=== PATIENT | female | born 1950 | race African-American/Black ===

== ENCOUNTER 2016-08-07 19:03 | Inpatient (IN) | payer OTHER ==
--- NOTE | ~2016-08-07 | HP ---
History And Physical [place] [id number] [facility] [place]. [address] NAME: ITZEL THOMPSON : 50 STATUS : ADM IN [facility]#: [id number] AGE: 66 ADM/REG DATE : 08/07/16 MR#: [id number] REPORT SERV DATE: 08/08/16 DICTATED BY: SAWYER VOGT DATE: 08/08/16 REPORT STATUS : Draft TRANSCRIBED BY: MODL DATE: 08/08/16 DATE OF ADMISSION: 08/07/2016 HISTORY OF PRESENT ILLNESS: She is a 66-year-old female, who apparently was found living in her car brought in because of unresponsiveness. She was found by her family. The patient was found to be having seizures. She was started on Keppra and Ativan for seizure activity. Temperature is noted to be 101.4. Blood pressure was 137/57. PAST MEDICAL HISTORY: Currently not obtainable. REVIEW OF SYSTEMS: Not obtainable. MEDICATIONS: Not obtainable. ALLERGIES: NOT OBTAINABLE. PHYSICAL EXAMINATION: VITAL SIGNS: Blood pressure is approximately 104/37, pulse is 90, temperature is as noted. She has gotten 3.5 L of fluid. She has gotten rectal Tylenol. Currently, on Levophed of 5. HEAD: Head is normocephalic. Pupils are equal and reactive. Doll's eyes are present. NECK: Supple. No JVD. CHEST: Occasional rhonchi, otherwise clear. CARDIAC: S1 and S2. No murmurs, rubs, or gallops. ABDOMEN: Scaphoid and nontender. No masses or organomegaly. EXTREMITIES: No clubbing, cyanosis, or edema. Pulses are palpable. NEUROLOGIC: Responsive to painful stimuli. Her pupils do respond to light. She does move occasionally spontaneously. Neck is not stiff. LABORATORY AND DIAGNOSTIC DATA: Lactate is 1.4. Influenza A and B screens were negative. Strep screen is negative. Drug screen; sodium 145, potassium 3.3, chloride 111, CO2 of 23, BUN 15, creatinine 1.26, glucose 105, calcium 7.0, magnesium 1.3, troponin 0.92. Tylenol level 11.2. Salicylate less than 1.7. Tetracaine 3.2. Tegretol 0.5. Alcohol less than 10. Urine drug screen is negative. CBC shows an H and H of 9.3 and 27.5, white count 1300, platelet count 138,000, 76 polys, 9 bands, 2 metamyelocytes. PTT 28.2, ProTime 15.9, INR 1.3. BNP 33. CT of the brain negative. Urinalysis; 76 polys, 8 white blood cells, otherwise negative. Nitrate negative. History And Physical [address] [address] NAME: ITZEL THOMPSON : 50 STATUS : ADM IN [facility]#: [id number] AGE: 66 ADM/REG DATE : 08/07/16 MR#: [id number] REPORT SERV DATE: 08/08/16 DICTATED BY: SAWYER VOGT DATE: 08/08/16 REPORT STATUS : Draft TRANSCRIBED BY: LORIN DATE: 08/08/16 Blood gas showed pH of 7.34, pCO2 of 41, pO2 of 82, base excess -3.8 on 50%. X-ray shows cardiomegaly, possible infiltrate right lower lobe. IMPRESSION: 1. Fever with seizures. 2. Altered mental status. 3. Heat exposure, dehydration, possible pneumonia. PLAN: Continue Levophed and continue Rocephin and Levaquin. We will consider spinal tap if condition improving. Her antibiotic should cover her for any possibly meningitis as well as pneumonia. Family was not available. RP/LORIN Sawyer Vogt M.D. / [id number] CC: Sawyer Vogt M.D.
--- NOTE | ~2016-08-07 | IDS ---
Interim Discharge Summary [facility] [address] [place]. [address] NAME: ITZEL THOMPSON : 50 STATUS : ADM IN [facility]#: [id number] AGE: 66 ADM/REG DATE : 08/07/16 MR#: [id number] REPORT SERV DATE: 08/10/16 DICTATED BY: JENNIFER MERA IV DATE: 08/10/16 REPORT STATUS : Draft TRANSCRIBED BY: LORIN DATE: 08/10/16 ADMISSION DATE: 08/07/2016 DISCHARGE DATE: DATE OF TRANSFER: To the floor is 08/10/2016. ADMITTING DIAGNOSES: 1. Sepsis with shock requiring vasopressor agents, off since the . 2. Reported seizure activity on Depakote with a negative EEG and LP as well as MRI. 3. Encephalopathy, improving. 4. Bacteremia with ID consult pending. No evidence for vegetations on transcutaneous echocardiogram. 5. Presumed pneumonia felt to be aspiration with Strep pyogenes in the sputum on antibiotics. 6. Schizophrenia with catatonia. 7. Thrombocytopenia with HIT panel pending on pneumatic compression stockings for deep vein thrombosis prophylaxis. 8. Electrolyte abnormalities, being corrected. CONSULTANTS: Neurology and Psychiatry, who continue to follow the patient. Infectious Disease consult is currently pending. PROCEDURES: The patient had a head CT scan on the failing to demonstrate any pathology. The patient had a lumbar puncture performed, which demonstrated no elevation in the white blood cell count with cultures negative to date with some serologic studies pending. The patient had an MRI on the demonstrating some minor deep white matter microvascular changes. She had an echocardiogram obtained today demonstrating left ventricular function at 50%-55% with some elevated right ventricular systolic pressure 47 mmHg with mild mitral regurgitation, with no evidence for vegetations and had a PICC line placed on 08/08. CURRENT MEDICATIONS: The patient is on Ativan 0.5 mg q.8 hours, Bactroban to her nose twice a day, Depakote 500 mg twice a day, thiamine 200 mg IV daily, vancomycin dose per pharmacy, azithromycin 500 mg to complete five days, Protonix 40 mg daily, Proventil q.4 hours while awake and q.4 hours as needed, Zosyn 3.375 g q.6 hours. HOSPITAL COURSE: The patient has recently been discharged from [facility] for her psychiatric disorder. The patient was reportedly living in a car in front of a family member's house. When they went to check on the individual, they were nonresponsive for which they were brought to the emergency room. There she reportedly had a temperature of a 104 with seizure activity. She underwent lumbar puncture, which failed to demonstrate evidence for meningitis and subsequent imaging studies, which demonstrated only the minimal microvascular disease on MRI. Neurology and Psychiatry were both consulted. The patient was empirically placed on antibiotic coverage with the fever and elevated procalcitonin level. Subsequent cultures have demonstrated a coag-negative staph on both blood cultures with ID consult pending. She grew moderate Strep pyogenes from sputum and 100,000 E coli from her urine. Her white count has appropriately decreased as has a procalcitonin level. Interim Discharge Summary [address] [address] NAME: ITZEL THOMPSON : 50 STATUS : ADM IN [facility]#: [id number] AGE: 66 ADM/REG DATE : 08/07/16 MR#: [id number] REPORT SERV DATE: 08/10/16 DICTATED BY: JENNIFER MERA IV DATE: 08/10/16 REPORT STATUS : Draft TRANSCRIBED BY: LORIN DATE: 08/10/16 She developed worsening of her thrombocytopenia for which heparin products were discontinued and the HIT panel was pending. Though this would be very early, it is unclear whether she received DVT prophylaxis while in the recent the medical center facilities. The patient was initially unresponsive for which a Dobbhoff tube was placed, however, that has improved. The oral intake is still somewhat marginal. She had multiple electrolyte abnormalities, which have improved. She no longer requires supplemental oxygen. It was felt that she had some mild acute kidney injury that has resolved with IV hydration as well. It was felt that she was stable for transfer to the floor. She has an order written by Psychiatry to coordinate transfer back to [facility] when she is medically stable. We will ask Hospitalist Service to assume primary care. DENISE/LORIN Jennifer Mera IV, M.D. / [id number] CC: Sawyer Whiteside M.D.
--- NOTE | ~2016-08-07 | CN ---
Consultation Report [facility] [address] [place]. [address] NAME: ITZEL THOMPSON : 50 STATUS : ADM IN PAT#: [id number] AGE: 66 ADM/REG DATE : 08/07/16 MR#: [id number] REPORT SERV DATE: 08/10/16 DICTATED BY: ARNOL MERINO DATE: 08/10/16 REPORT STATUS : Draft TRANSCRIBED BY: MODL DATE: 08/10/16 INFECTIOUS DISEASE CONSULTATION DATE OF CONSULTATION: 08/10/2016 REASON FOR CONSULTATION: Positive blood cultures. HISTORY OF PRESENT ILLNESS: This is a 66-year-old female with a past medical history notable for significant psychiatric illness including schizophrenia with catatonic features. She was hospitalized at [facility] from approximately 07/23/2016 through 08/02/2016. Her discharge medications were Haldol and p.r.n. Benadryl. She unfortunately is homeless and was staying in her car and was brought to the emergency department at [facility] on 08/07/2016 after being found in a car to be unresponsive and then noted to have seizure episodes. She apparently had an initial fever in the emergency department of 104.7. She was also tachycardic and relatively hypotensive and had an initial procalcitonin of 12.70. She underwent extensive evaluation including negative CT scan of the brain and chest x-ray and lumbar puncture. She was started on broad-spectrum empiric antibiotics with vancomycin, Zosyn, and azithromycin. She did develop some changes in her chest x-ray and there was some concern that she could have aspirated. The patient was evaluated by Neurology. She has had no further seizures. She had a fever up to 100.7 yesterday and early this morning. Her procalcitonin is down to 3.54. Her admission blood cultures returned with coagulase- negative staph. These are recorded as being drawn at different times, although we do not know for sure if these are from two separate sticks. According to the micro lab, there appeared to be two different strains of coagulase-negative staph. Her workup also has included abnormal urinalysis as noted below with positive urine culture along with a throat culture growing group a strep. The patient's mental status has improved. At present, she is fairly alert and in no acute distress. She denies any significant pain. She denies any UTI symptoms, although has a Vazquez catheter right now. She denies back pain, although does have some bilateral hip discomfort. PAST MEDICAL HISTORY: Otherwise unremarkable, although difficult to obtain. So, this is an incomplete history. ALLERGIES: SHE IS INTOLERANT APPARENTLY TO HEPARIN. PRESENT MEDICATIONS: In addition to the antibiotics include Protonix, valproic acid, and thiamine. SOCIAL HISTORY: As outlined above. Apparently, she refused to live in an apartment which [facility] had arranged for her. FAMILY HISTORY: Unremarkable. REVIEW OF SYSTEMS: Consultation Report [address] [place]. [address] NAME: ITZEL THOMPSON : 50 STATUS : ADM IN [facility]#: [id number] AGE: 66 ADM/REG DATE : 08/07/16 MR#: [id number] REPORT SERV DATE: 08/10/16 DICTATED BY: ARNOL MERINO DATE: 08/10/16 REPORT STATUS : Draft TRANSCRIBED BY: LORIN DATE: 08/10/16 As outlined above, otherwise negative. PHYSICAL EXAMINATION: VITAL SIGNS: She weighs 48 kg. Maximum temperature in the last 24 hours 100.7, blood pressure 119/63, pulse 92, and respiratory rate 14. GENERAL: She is in no acute distress. HEENT: Oral cavity shows no thrush. Pharynx was difficult to visualize. Conjunctivae showed no petechiae. NECK: Supple. No adenopathy. LUNGS: Clear to auscultation. CARDIAC: Regular rate and rhythm. Normal S1, S2 without murmur, gallop, or rub. ABDOMEN: Soft, nontender, and nondistended. EXTREMITIES: Showed no stigmata of endocarditis. IV site is without phlebitis. I do not see any signs of soft tissue or skin infection. LABORATORY STUDIES: Admission white blood cell count 11.3, 9% bands, yesterday 7.1; hemoglobin 8.9; MCV 92; RDW 16.1; platelets are 78,000, they were 138,000 on admission. Procalcitonin today 3.54, creatinine 0.95, albumin 2.4, ALT 54, AST 33. On 08/08/2016, her ALT was 103 and AST 138. CPK was 528, CPK is now 305. HIV and hepatitis panel are negative. RPR is pending. MICROBIOLOGY STUDIES: Blood cultures as mentioned. Urine culture grew 10,000 colonies of E coli, which is resistant to ceftriaxone, sensitive to Zosyn. Urinalysis showed large leukocyte esterase, large blood, 76 red blood cells, 8 white blood cells. Rapid strep screen on throat swab was negative. Throat culture grew moderate group a strep. Urine legionella and pneumococcal antigens negative. Influenza screen negative. Repeat blood cultures from yesterday are negative to date. IMPRESSION: Possible sepsis on admission given the high fever in the emergency room, tachycardia, tachypnea, and relative hypotension. There was some concern here for the possibility of neuroleptic malignant syndrome, but with the significantly elevated procalcitonin. I think we have to be concerned that she did have bacterial sepsis. The source is not clear. She has these positive blood cultures for coagulase-negative Staph, but it looks like two different strains, and overall I suspect these are contaminants. I do not see signs of a true coagulase-negative Staph infection. I should note that her echocardiogram did not show evidence of endocarditis, although was a somewhat limited study. She may have aspirated with her seizure and certainly that is likely a source of her sepsis picture. Her serial chest x-rays are reviewed and do show some new findings although not convincing for pneumonia. Finally, she has this positive urine culture and then mildly abnormal urinalysis and an E coli UTI may be contributing to the sepsis picture. PLAN: 1. For now, we will continue her Zosyn to cover the possibility of aspiration and to cover the UTI. 2. Discontinue vancomycin and azithromycin. Consultation Report [address] [place]. [address] NAME: ITZEL THOMPSON : 50 STATUS : ADM IN [facility]#: [id number] AGE: 66 ADM/REG DATE : 08/07/16 MR#: [id number] REPORT SERV DATE: 08/10/16 DICTATED BY: ARNOL MERINO DATE: 08/10/16 REPORT STATUS : Draft TRANSCRIBED BY: LORIN DATE: 08/10/16 3. If her repeat blood cultures remain negative and she defervesces, we can transition to oral antibiotic therapy over the next 24 to 48 hours. JUAN LUIS/LORIN Arnol Merino M.D. / [id number] CC: Sawyer Whiteside M.D. NO PCP
--- NOTE | ~2016-08-07 | EEG ---
Electroencephalogram [facility] [address] [place]. [address] NAME: ITZEL THOMPSON : 50 STATUS : ADM IN PAT#: [id number] AGE: 66 ADM/REG DATE : 08/07/16 MR#: [id number] REPORT SERV DATE: 08/08/16 DICTATED BY: DATE: REPORT STATUS : Draft TRANSCRIBED BY: MODL DATE: 08/08/16 CLINICAL INDICATIONS: Seizure. DESCRIPTION: This EEG was performed using 10/20 electrode placement system. During the EEG study, symmetric background activity was noted with predominant occipital rhythm of roughly 9-10 hertz. Photic stimulation was performed with trace driving response. Hyperventilation was not performed secondary to patient's mental status. During the EEG study, the patient achieved drowsy as well as stage I and II sleep. Nail bed pressure was applied during the EEG study with brief arousal episode as well as muscle contamination, otherwise the patient remains in stage I and II sleep throughout most of the EEG study. No focal abnormalities, seizure activity, or seizure discharge was otherwise noted. INTERPRETATION: This EEG study obtained during awake and drowsy state as well as stage I and II sleep may be considered within normal limits. No focal abnormalities, seizure activity, or seizure discharge was otherwise noted. Normal EEG does not preclude seizure disorder. Clinical correlation is otherwise recommended. [facility]/LORIN Twin Paulino MD / [id number] CC: Sawyer Whiteside M.D.
--- NOTE | ~2016-08-07 | CN ---
Consultation Report [facility] [address] [place]. [address] NAME: ITZEL THOMPSON : 50 STATUS : ADM IN PAT#: [id number] AGE: 66 ADM/REG DATE : 08/07/16 MR#: [id number] REPORT SERV DATE: 08/08/16 DICTATED BY: DATE: REPORT STATUS : Draft TRANSCRIBED BY: MODL DATE: 08/08/16 NEUROLOGY CONSULTATION DATE OF CONSULTATION: 08/08/2016 REASON FOR CONSULTATION: Seizure. HISTORY OF PRESENT ILLNESS: This is a 66-year-old female, who apparently was living in her car outside of friend's house was noted to be unresponsive and brought to the emergency room and noted to have seizure episodes. The patient was started on Ativan as well as the Keppra with the control of seizure. The patient in addition was also noted to have high fevers at the Emergency Department, with the patient noted to have fever of 104.7 degree. As a result, the spinal tap was performed without significant abnormalities. The patient reportedly has history of psychiatric disorder, but unable to confirm history without any family members or friends. The patient is nonverbal this morning. No clinical seizure was otherwise observed since the hospitalization. The Patient continued to be on Keppra IV. PAST MEDICAL HISTORY: Unobtainable. FAMILY HISTORY: Unobtainable. SOCIAL HISTORY: Unobtainable. MEDICATIONS: Unobtainable. ALLERGIES: IT IS UNCLEAR WHETHER OR NOT THE PATIENT HAS ANY ALLERGIES TO ANY MEDICATIONS. PHYSICAL EXAMINATION: VITAL SIGNS: Since the hospitalization, the patient was noted to have vital signs with T- max of 96.2, heart rate of 70 to 78, respirations of 20 to 26, and blood pressure of 195 to 113/52 to 73. GENERAL: The patient is well-developed, well-nourished, in no acute distress. CARDIOVASCULAR: Regular rate and rhythm. No carotid bruits were otherwise auscultated. PULMONARY: Mild decreased breath sound in bilateral lung watt. The patient does have a cough productive of clear sputum at time of evaluation. NEUROLOGIC: The patient is alert, but nonverbal at the time of evaluation. She will follow some simple commands at the time of evaluation. Cranial nerves 2 through 12, pupils equal, round, and reactive to light. The patient does demonstrates intact extraocular eye movement on command at the time of evaluation, with intact blink to threat response, was noted to have sensation to touch in bilateral face. With the patient noted to have mild facial asymmetry, with decreased nasolabial fold on the left. Otherwise midline tongue. At time of evaluation, appeared to have mild decreased hearing in bilateral ears. The patient does demonstrate movement of bilateral upper extremity and bilateral lower extremity against gravity. Also bradykinesia was noted. No tremor was appreciated at time of evaluation. Consultation Report [place] [id number] [facility] [place]. [address] NAME: ITZEL THOMPSON : 50 STATUS : ADM IN PAT#: [id number] AGE: 66 ADM/REG DATE : 08/07/16 MR#: [id number] REPORT SERV DATE: 08/08/16 DICTATED BY: DATE: REPORT STATUS : Draft TRANSCRIBED BY: MODL DATE: 08/08/16 Deep tendon reflex was 2+ throughout. Downgoing toe on bilateral plantar reflexes. Gait and cerebellar examination was not evaluated, secondary to the patient non-cooperative. LABORATORY DATA: At the time of evaluation, the patient's laboratory studies demonstrated white blood cell count of 6.3, hemoglobin of 9.9, hematocrit of 29.9, and platelet count of 98. Chemistry panel; sodium of 147, potassium 3.5, chloride 114, bicarb 22, BUN of 18, creatinine 1.07. Glucose of 116, calcium of 7.3, magnesium 1.9. Serum TSH of 0.343, free T4 of 1.10, serum cortisol this morning was 12.8. With the patient noted to have a spinal tap. CSF white blood cell count of 1 and 68 red blood cell. Glucose of 76. Total protein of 37.1. Urine drug screen is otherwise negative. With the patient's urinalysis demonstrated large leukocyte esterase and negative nitrite. CT scan of the brain otherwise demonstrated no acute process. IMPRESSION: Seizure, it is unclear if the patient has any history of seizure disorders in the past. The patient also remains afebrile since hospital admission, but was noted to have high body temperature in the Emergency Department. Spinal tap performed in the Emergency Department demonstrated no clear infectious etiology or pattern. Concern for possible acute stroke versus a new onset seizures. We will check MRI of the brain without contrast. We will obtain EEG study. Meanwhile we will continue Keppra 500 mg IV b.i.d. for now. May consider Depakote given the patient's suspected history of psychiatric disorder. RECOMMENDATION: 1. MRI of the brain without contrast. 2. EEG. 3. Continue Keppra for now. 4. May consider Depakote. [facility]/MODL Twin Paulino MD / [id number] CC: Sawyer Whiteside M.D.
--- NOTE | ~2016-08-07 | CN ---
Consultation Report [facility] [address] [place]. [address] NAME: ITZEL THOMPSON : 50 STATUS : ADM IN PAT#: [id number] AGE: 66 ADM/REG DATE : 08/07/16 MR#: [id number] REPORT SERV DATE: 08/09/16 DICTATED BY: RICKY FELIX DATE: 08/09/16 REPORT STATUS : Draft TRANSCRIBED BY: MODL DATE: 08/09/16 PSYCHIATRIC CONSULTATION DATE OF CONSULTATION: 08/09/2016 I reviewed the patient's medical record. I also reviewed records which we received from [facility]. I discussed patient's status with the neurologist, Dr. Caballero. HISTORY OF PRESENT ILLNESS: The patient was found unresponsive in her car. Subsequently, she had a questionable seizure in our emergency department and she also ran a temperature of over 104 degrees Fahrenheit while she was there. I was consulted to address her psychiatric status. PAST PSYCHIATRIC HISTORY: She has had 5 admissions to [facility] with psychotic symptoms. She was last discharged from there on 08/03/2016, with a diagnosis of chronic schizophrenia and catatonia. While she was there, she was receiving Haldol Decanoate 100 mg IM monthly. Her next dose was due on 08/21/2016. She was to receive follow up outpatient psychiatric care at [facility]. SOCIAL HISTORY: Her sister who was visiting reported that the patient has been homeless for some time. She refused to live in the apartment which [facility] had arranged for her at the time of her discharge. She was living in her car. FAMILY HISTORY: No psychiatric illness. MENTAL STATUS: She was lying on her right side with flexed hips and knees. She kept her eyes closed. She did not respond to a greeting or to my questions. Her nurse reported that she occasionally uttered "no" or "get out" when they attempted to intervene. DIAGNOSIS: Schizophrenia with catatonic features. RECOMMENDATIONS: We will give her Ativan 1 mg IV slowly and observe the response. If she seems to be responding to Ativan or if it is not causing further sedation, I may put her on an Ativan schedule. When she is finally cleared by Neurology and General Medicine, she probably will need to return to [facility]. I discussed my recommendations with Dr. Mera. I will follow. DK/MODL Ricky Felix M.D. Consultation Report [address] [place]. [address] NAME: ITZEL THOMPSON : 50 STATUS : ADM IN PAT#: [id number] AGE: 66 ADM/REG DATE : 08/07/16 MR#: [id number] REPORT SERV DATE: 08/09/16 DICTATED BY: RICKY FELIX DATE: 08/09/16 REPORT STATUS : Draft TRANSCRIBED BY: MODL DATE: 08/09/16 / [id number] CC: Sawyer Whiteside M.D.
--- NOTE | ~2016-08-07 | DS ---
Discharge Summary [place] [id number] [facility] [place]. [address] NAME: ITZEL THOMPSON : 50 STATUS : DIS IN PAT#: [id number] AGE: 66 ADM/REG DATE : 08/07/16 MR#: [id number] REPORT SERV DATE: 08/17/16 DICTATED BY: JER RIOS DATE: 08/16/16 REPORT STATUS : Draft TRANSCRIBED BY: MODDebbie DATE: 08/16/16 ADMISSION DATE: 08/07/2016 DISCHARGE DATE: 08/17/2016 REASON FOR ADMISSION: This is a 66-year-old female, who was found living in her car and brought in because of unresponsiveness. She was found by family. The patient was found to be having seizures and started on Keppra and Ativan for seizure activity, and temperature was 101.4 on admission. DISCHARGE DIAGNOSES: 1. Status post septic shock secondary to E coli urinary tract infection. 2. Group A strep throat. 3. Contaminant-positive blood culture. 4. Schizophrenia with catatonia. 5. Reported seizures, on p.o. Depakote. 6. Iron deficiency anemia. HOSPITAL COURSE: Please see H and P from Dr. Sawyer Whiteside on 08/08/2016 and interim discharge summary from Dr. José Miguel Mera on 08/10/2016 for full details on admission and hospital stay. 1. Status post septic shock secondary to UTI. The patient on admission had been recently discharged from [facility] for psychiatric disorder and had been living in a car, found unresponsive, and reportedly was having high fevers and seizure activity. She underwent a lumbar puncture, which was negative for evidence of meningitis, and subsequent MRI would demonstrate only microvascular disease. Neurology and Psychiatry were both consulted. The patient was then empirically placed on antibiotic coverage for the fever and elevated procalcitonin. Subsequent cultures demonstrated coag- negative staph on both cultures. ID did see the patient and deemed the positive blood cultures to be contaminant. She grew moderate Strep pyogenes from sputum at 100,000 E coli in urine. Her white count and procalcitonin trended down appropriately. The patient initially was unresponsive and had Dobbhoff tube placed, but she is now fully cognitively functional minus her psychiatric disorders, oral intake is good, and no longer required supplemental oxygen. She was transitioned to oral amoxicillin for the group A strep and will complete on 08/17. 2. Schizophrenia with catatonia. Dr. Cabral saw the patient here at hospital and felt that she needed further inpatient psychiatric care. He has had her on scheduled Ativan and has signed the CON for the patient to go to [facility], which has since been arranged for today. The patient, I believe, yesterday on 08/15, snuck out of the hospital and was discovered to left shortly later by the nursing staff. Code deepa was called. The patient was unable to be located in the hospital; however, she was spotted walking on [facility] from the [address] [place] [address] room window by a [employer]PECTOR, and a search libertarian was able to locate her with direction via phone from the observation of this [employer] BU[employer] INSPECTOR from the [address] [place] [address] window. The patient was apprehended, police officers handcuffed her and brought her back to the room, and she is being transported to [facility] today. 3. Reported seizures. No further seizure activity at the hospital. The patient on oral Discharge Summary [address] [address] NAME: ITZEL THOMPSON : 50 STATUS : DIS IN PAT#: [id number] AGE: 66 ADM/REG DATE : 08/07/16 MR#: [id number] REPORT SERV DATE: 08/17/16 DICTATED BY: JER RIOS DATE: 08/16/16 REPORT STATUS : Draft TRANSCRIBED BY: LORIN DATE: 08/16/16 Depakote. 4. Iron deficiency anemia. The patient's ferritin level and iron sat found to be low with hemoglobin of 9.1. She has been started on oral iron. DISCHARGE CONDITION: Stable. DISCHARGE MEDICATIONS: 1. Amoxicillin 875 mg p.o. b.i.d. through 08/17. 2. Depakote 500 mg p.o. b.i.d. 3. Lorazepam 0.5 mg p.o. q.8 hours. 4. Multivitamin one tablet daily. 5. Protonix 40 mg p.o. daily. DISCHARGE PLAN: The patient is discharged to [facility] and further psych care from there. CT/LORIN Jer Rios APN / [id number] CC: Flako Blackmon M.D. Denis Kennedy, M.D. [place]
[2016-08-07 20:52] LABS: ALLENS TEST Pos; BE (BASE EXCESS) -3.8 MEQ/L (0 +/- 2.5); CARBOXYHEMOGLOBIN 0.5 % (0-3); DEVICE VM; HCO3 (ACTUAL BICARBONATE) 21.7 MEQ/L (23-27); HEMOBLOGIN CONTENT 9.6 G/DL (12-16); INSTRUMENT SERIAL # 8087; METHEMOGLOBIN 0.5 % (0-3); O2 CONTENT 12.8 VOL% (18-24); OPERATOR ID 32193; PCO2 (CO2 TENSION) 41 MMHG (35-45); PO2 (O2 TENSION) 82 MMHG (79-93); SAMPLE Arterial; pH 7.34 (7.37-7.43)
[2016-08-07 21:01] LABS: ASCORBIC ACID (UR NOT ORDER) NEG (NEG); BILIRUBIN, URINE NEGATIVE (NEG); ER URINALYSIS TAT 0 Hrs 15 Mins; KETONE, URINE NEGATIVE (NEG); LEUKOCYTE ESTERASE(NOT OR LARGE (NEG); NITRITE (URINE) NEG (NEG); WBC (NOT ORDERED) (RFLEX) 8 (0-5)
[2016-08-07 21:09] LABS: BASOPHILS 0.1 %; BASOPHILS ABSOLUTE 0.01 10/3/uL (0.0-0.16); EOSINOPHILS 0.2 %; EOSINOPHILS ABSOLUTE 0.02 10/3/uL (0.0-0.53); IMMATURE GRANULOCYTES ABSOLUTE 0.11 10/3/uL (0.0-0.11); LYMPHOCYTES 10.3 %; LYMPHOCYTES ABSOLUTE 1.16 10/3/uL (0.67-4.30); MEAN CORPUS HGB CONC 33.5 g/dL (32.0-36.0); MEAN CORPUSCULAR HEMOGLOB 30.8 pg (26.0-34.0); MEAN PLATELET VOLUME 9.2 fL (9.2-13.0); NEUTROPHILS 80.4 %; NEUTROPHILS ABSOLUTE 9.05 10/3/uL (2.02-8.40); RBC DISTRIBUTION WIDTH 15.4 % (12.0-16.0)
[2016-08-07 21:12] LABS: ER CBC TAT 0 Hrs 09 Mins; HEMATOCRIT 27.5 % (36.0-48.0); HEMOGLOBIN 9.2 g/dL (12.0-16.0); MANUAL DIFF NO %; PLATELET COUNT 138 10/3/uL (150-400); RED CELL COUNT 2.99 10/6/uL (4.0-5.6); WHITE BLOOD CELLS 11.3 10/3/uL (4.5-10.5)
[2016-08-07 21:25] LABS: BUN (BLOOD UREA NITROGEN) 15 MG/DL (6-23); CHLORIDE, SERUM 111 MMOL/L (96-112); CO2 (CARBON DIOXIDE) 23 MMOL/L (24-34); CREATININE 1.26 MG/DL (0.55-1.02); GFR AFRICAN AMERICAN 51 ML/MIN (>=60); GFR NON AFRICAN AMERICAN 44 ML/MIN (>=60); GLUCOSE, SERUM 105 MG/DL (60-99); POTASSIUM, SERUM 3.3 MMOL/L (3.5-5.3); SODIUM, SERUM 145 MMOL/L (135-148)
[2016-08-07 21:27] LABS: CHEST PAIN PROFILE TAT 0 Hrs 24 Mins; TROPONIN I 0.92 NG/ML (<0.05)
[2016-08-07 21:33] LABS: BAND NEUTROPHILS 9 %; ER DIFF TAT 0 Hrs 30 Mins; IMMATURE GRANS ABSOLUTE (CALC) 0.23 10/3/uL (0.0-0.11); LYMPHOCYTES 4 %; LYMPHOCYTES ABSOLUTE (CALC) 0.45 10/3/uL (0.67-4.30); METAMYELOCYTES 2 %; MONOCYTES 9 %; MONOCYTES ABSOLUTE (CALC) 1.02 10/3/uL (0.21-1.20); NEUTROPHILS ABSOLUTE (CALC) 9.61 10/3/uL (2.02-8.40); PLATELET ESTIMATE SLT DEC (ADEQUATE); RBC MORPHOLOGY NORM (NORMAL); SEGMENTED NEUTROPHIL (0) 76 %; TOTAL NUCLEATED CELLS 100
[2016-08-07 21:46] LABS: INTERNATIONAL NORMAL RATI 1.3 UNITS (-); PARTIAL THROMBO TIME 28.8 SEC (22.5-37.2)
[2016-08-07 21:48] LABS: PROTIME (NOT ORD) 15.9 SEC (12.0-14.5)
[2016-08-07 21:55] LABS: ACETAMINOPHEN LEVEL (TYLENOL) 11.2 MCG/ML (10.0-20.0); SALICYLATE < 1.7 MG/DL (-)
[2016-08-07 21:57] LABS: ALCOHOL < 10 MG/DL (0)
[2016-08-07 21:58] LABS: AMPHETAMINES (NOT ORD) NEG (NEG); BARBITURATES (NOT ORDERED NEG (NEG); BENZODIAZEPINES (NOT ORD) NEG (NEG); CANNABINOIDS (THC) NEG (NEG); COCAINE (NOT ORDERED) NEG (NEG); OPIATES NEG (NEG); PHENCYCLIDINE(PCP) NEG (NEG); TRICYCLICS NEG (NEG)
[2016-08-07 22:10] LABS: LACTATE 1.4 MMOL/L (0.3-2.4)
[2016-08-07 22:43] LABS: INFLUENZA A SCREEN NEGATIVE (NEGATIVE); INFLUENZA B SCREEN NEGATIVE (NEGATIVE)
[2016-08-07 23:41] LABS: DEPAKENE (VALPROIC ACID) 3.2 MCG/ML (50.0-100.0)
[2016-08-08 00:02] LABS: TEGRETOL (CARBAMAZEPINE) < 0.5 MCG/ML (4.0-10.0)
[2016-08-08] MEDS ORDERED: *UNABLE2 (00:20)
[2016-08-08 01:46] LABS: GLUCOSE CSF 76 MG/DL (45-70); TOTAL PROTEIN, CSF 37.1 MG/DL (15-45)
[2016-08-08 02:26] LABS: CSF BASO 0 % (NO REF RANGE); CSF EOS 0 % (0-1); CSF LYMPH (NOT ORD) 22 % (28-96); CSF MONO 72 % (16-56); CSF SEGS (NOT ORD) 6 % (0-7)
[2016-08-08 02:28] LABS: CSF APPEARANCE (NOT ORD) CLEAR (CLEAR); CSF COLOR (NOT ORD) COLORLESS (COLORLESS); CSF RBC (NOT ORD) 175 MM3 (NO REFERENCE); CSF WBC (NOT ORD) 1 /uL (0-10); CSF XANTHROCHROMIA NEG (NEG)
[2016-08-08 02:32] LABS: CSF APPEARANCE (NOT ORD) CLEAR (CLEAR); CSF BASO 0 % (NO REF RANGE); CSF COLOR (NOT ORD) COLORLESS (COLORLESS); CSF EOS 0 % (0-1); CSF LYMPH (NOT ORD) 0 % (28-96); CSF MONO 100 % (16-56); CSF SEGS (NOT ORD) 0 % (0-7); CSF XANTHROCHROMIA NEG (NEG)
[2016-08-08 02:37] LABS: CSF RBC (NOT ORD) 68 MM3 (NO REFERENCE); CSF WBC (NOT ORD) 1 /uL (0-10)
[2016-08-08 03:53] LABS: ALLENS TEST Pos; BE (BASE EXCESS) -2.5 MEQ/L (0 +/- 2.5); CARBOXYHEMOGLOBIN 0.2 % (0-3); DEVICE VM; HCO3 (ACTUAL BICARBONATE) 20.8 MEQ/L (23-27); HEMOBLOGIN CONTENT 10.3 G/DL (12-16); INSTRUMENT SERIAL # 35151; METHEMOGLOBIN 0.8 % (0-3); O2 CONTENT 13.2 VOL% (18-24); OPERATOR ID 16469; PCO2 (CO2 TENSION) 31 MMHG (35-45); PO2 (O2 TENSION) 61 MMHG (79-93); SAMPLE Arterial; pH 7.45 (7.37-7.43)
[2016-08-08 05:32] LABS: BASOPHILS 0.3 %; BASOPHILS ABSOLUTE 0.02 10/3/uL (0.0-0.16); EOSINOPHILS 0.2 %; EOSINOPHILS ABSOLUTE 0.01 10/3/uL (0.0-0.53); HEMATOCRIT 29.9 % (36.0-48.0); HEMOGLOBIN 9.9 g/dL (12.0-16.0); IMMATURE GRANULOCYTES 0.3 %; IMMATURE GRANULOCYTES ABSOLUTE 0.02 10/3/uL (0.0-0.11); LYMPHOCYTES 14.7 %; LYMPHOCYTES ABSOLUTE 0.93 10/3/uL (0.67-4.30); MANUAL DIFF NO %; MEAN CORPUS HGB CONC 33.1 g/dL (32.0-36.0); MEAN CORPUSCULAR HEMOGLOB 30.7 pg (26.0-34.0); MEAN CORPUSCULAR VOLUME 92.9 fL (80-100); MONOCYTES 13.9 %; MONOCYTES ABSOLUTE 0.88 10/3/uL (0.21-1.20); NEUTROPHILS 70.6 %; NEUTROPHILS ABSOLUTE 4.45 10/3/uL (2.02-8.40); PLATELET COUNT 98 10/3/uL (150-400); RBC DISTRIBUTION WIDTH 15.6 % (12.0-16.0); RED CELL COUNT 3.22 10/6/uL (4.0-5.6); WHITE BLOOD CELLS 6.3 10/3/uL (4.5-10.5)
[2016-08-08 05:56] LABS: A/G RATIO 0.9 (0.7-1.9); ALBUMIN 2.5 G/DL (3.5-5.0); ALKALINE PHOSPHATASE 82 U/L (45-117); BUN (BLOOD UREA NITROGEN) 18 MG/DL (6-23); CALCIUM, SERUM 7.3 MG/DL (8.5-10.4); CHLORIDE, SERUM 114 MMOL/L (96-112); CK-MB 11.2 NG/ML; CKMB INDEX (NOT ORD) 2.5; CO2 (CARBON DIOXIDE) 22 MMOL/L (24-34); CPK 452 U/L (0-200); CREATININE 1.07 MG/DL (0.55-1.02); GFR AFRICAN AMERICAN 63 ML/MIN (>=60); GFR NON AFRICAN AMERICAN 54 ML/MIN (>=60); GLOBULIN 2.9 G/DL (2.5-4.1); GLUCOSE, SERUM 116 MG/DL (60-99); POTASSIUM, SERUM 3.5 MMOL/L (3.5-5.3); SGOT(AST) 138 U/L (5-40); SGPT(ALT) 103 U/L (5-65); SODIUM, SERUM 147 MMOL/L (135-148); TOTAL BILIRUBIN 0.3 MG/DL (0-1.2); TOTAL PROTEIN 5.4 G/DL (6.0-8.5); ULTRASENSITIVE TSH 0.343 MCIU/ML (0.358-3.740)
[2016-08-08 10:51] LABS: TROPONIN I 0.53 NG/ML (<0.05)
[2016-08-08 18:45] LABS: TROPONIN I 0.31 NG/ML (<0.05)
[2016-08-09 02:04] LABS: BASOPHILS 0.1 %; BASOPHILS ABSOLUTE 0.01 10/3/uL (0.0-0.16); EOSINOPHILS 0 %; HEMOGLOBIN 8.9 g/dL (12.0-16.0); IMMATURE GRANULOCYTES 0.3 %; IMMATURE GRANULOCYTES ABSOLUTE 0.02 10/3/uL (0.0-0.11); LYMPHOCYTES 19.5 %; LYMPHOCYTES ABSOLUTE 1.39 10/3/uL (0.67-4.30); MEAN CORPUS HGB CONC 33.1 g/dL (32.0-36.0); MEAN CORPUSCULAR HEMOGLOB 30.5 pg (26.0-34.0); MEAN CORPUSCULAR VOLUME 92.1 fL (80-100); MONOCYTES 7.9 %; MONOCYTES ABSOLUTE 0.56 10/3/uL (0.21-1.20); NEUTROPHILS 72.2 %; NEUTROPHILS ABSOLUTE 5.13 10/3/uL (2.02-8.40); PLATELET COUNT 78 10/3/uL (150-400); RBC DISTRIBUTION WIDTH 16.1 % (12.0-16.0); RED CELL COUNT 2.92 10/6/uL (4.0-5.6); WHITE BLOOD CELLS 7.1 10/3/uL (4.5-10.5)
[2016-08-09 02:11] LABS: HEMATOCRIT 26.9 % (36.0-48.0); MANUAL DIFF NO %
[2016-08-09 02:31] LABS: A/G RATIO 0.8 (0.7-1.9); ALBUMIN 2.2 G/DL (3.5-5.0); ALKALINE PHOSPHATASE 70 U/L (45-117); BUN (BLOOD UREA NITROGEN) 14 MG/DL (6-23); CALCIUM, SERUM 7.5 MG/DL (8.5-10.4); CHLORIDE, SERUM 116 MMOL/L (96-112); CO2 (CARBON DIOXIDE) 25 MMOL/L (24-34); CPK 305 U/L (0-200); CREATININE 0.99 MG/DL (0.55-1.02); GFR AFRICAN AMERICAN 69 ML/MIN (>=60); GFR NON AFRICAN AMERICAN 59 ML/MIN (>=60); GLOBULIN 2.9 G/DL (2.5-4.1); GLUCOSE, SERUM 84 MG/DL (60-99); PHOSPHORUS, SERUM 2.9 MG/DL (2.5-4.5); POTASSIUM, SERUM 3.8 MMOL/L (3.5-5.3); SGOT(AST) 64 U/L (5-40); SGPT(ALT) 75 U/L (5-65); SODIUM, SERUM 149 MMOL/L (135-148); TOTAL BILIRUBIN 0.3 MG/DL (0-1.2); TOTAL PROTEIN 5.1 G/DL (6.0-8.5); TROPONIN I 0.41 NG/ML (<0.05)
[2016-08-09 03:04] LABS: PLATELET ESTIMATE DEC (ADEQUATE)
[2016-08-09 03:05] LABS: RBC MORPHOLOGY NORM (NORMAL)
[2016-08-09 03:29] LABS: ALLENS TEST Pos; BE (BASE EXCESS) -1.1 MEQ/L (0 +/- 2.5); CARBOXYHEMOGLOBIN 0.2 % (0-3); DEVICE NC; HCO3 (ACTUAL BICARBONATE) 22.9 MEQ/L (23-27); HEMOBLOGIN CONTENT 9.8 G/DL (12-16); INSTRUMENT SERIAL # 35151; METHEMOGLOBIN 0.9 % (0-3); O2 CONTENT 13.5 VOL% (18-24); OPERATOR ID 31061; PCO2 (CO2 TENSION) 36 MMHG (35-45); PO2 (O2 TENSION) 113 MMHG (79-93); SAMPLE Arterial; pH 7.43 (7.37-7.43)
[2016-08-09 07:46] LABS: HEPATITIS B SURFACE ANTIGEN NON-REACTIVE (NON-REACT)
[2016-08-09 08:08] LABS: HEPATITIS C ANTIBODY NON-REACTIVE (NON-REACT)
[2016-08-09 08:09] LABS: HEPATITIS B CORE AB IGM NON-REACTIVE (NON-REAC); HIV COMBO NON-REACTIVE (NON REAC)
[2016-08-09 08:10] LABS: HEP A ANTIBODY IGM NON-REACTIVE (NON-REACT)
[2016-08-10 04:59] LABS: INTERNATIONAL NORMAL RATI 1.2 UNITS (-)
[2016-08-10 05:06] LABS: A/G RATIO 0.8 (0.7-1.9); ALBUMIN 2.4 G/DL (3.5-5.0); ALKALINE PHOSPHATASE 68 U/L (45-117); CALCIUM, SERUM 7.8 MG/DL (8.5-10.4); CHLORIDE, SERUM 115 MMOL/L (96-112); CO2 (CARBON DIOXIDE) 25 MMOL/L (24-34); CREATININE 0.95 MG/DL (0.55-1.02); GFR AFRICAN AMERICAN 72 ML/MIN (>=60); GFR NON AFRICAN AMERICAN 62 ML/MIN (>=60); GLUCOSE, SERUM 88 MG/DL (60-99); PHOSPHORUS, SERUM 2.7 MG/DL (2.5-4.5); POTASSIUM, SERUM 3.7 MMOL/L (3.5-5.3); SGOT(AST) 33 U/L (5-40); SGPT(ALT) 54 U/L (5-65); SODIUM, SERUM 148 MMOL/L (135-148); TOTAL BILIRUBIN 0.5 MG/DL (0-1.2); TOTAL PROTEIN 5.4 G/DL (6.0-8.5)
[2016-08-10 05:11] LABS: BUN (BLOOD UREA NITROGEN) 6 MG/DL (6-23)
[2016-08-10 05:40] LABS: PROCALCITONIN 3.54 ng/mL (<0.5)
[2016-08-10 12:57] LABS: HSV DNA TYPE 1 Not Detected (NOTDET); HSV DNA TYPE 2 Not Detected (NOTDET)
[2016-08-10 14:16] LABS: HEPARIN-INDUCED PLATELET AB NEGATIVE (NEGATIVE)
[2016-08-11 05:49] LABS: HEMATOCRIT 26.4 % (36.0-48.0); HEMOGLOBIN 8.9 g/dL (12.0-16.0); MEAN CORPUS HGB CONC 33.7 g/dL (32.0-36.0); MEAN CORPUSCULAR HEMOGLOB 30.6 pg (26.0-34.0); MEAN CORPUSCULAR VOLUME 90.7 fL (80-100); MEAN PLATELET VOLUME 9.4 fL (9.2-13.0); RBC DISTRIBUTION WIDTH 15.8 % (12.0-16.0); RED CELL COUNT 2.91 10/6/uL (4.0-5.6); WHITE BLOOD CELLS 4.6 10/3/uL (4.5-10.5)
[2016-08-11 05:50] LABS: MANUAL DIFF YES %; PLATELET COUNT 137 10/3/uL (150-400)
[2016-08-11 06:06] LABS: BUN (BLOOD UREA NITROGEN) 5 MG/DL (6-23); CALCIUM, SERUM 7.6 MG/DL (8.5-10.4); CHLORIDE, SERUM 112 MMOL/L (96-112); CO2 (CARBON DIOXIDE) 25 MMOL/L (24-34); CREATININE 1.06 MG/DL (0.55-1.02); GFR AFRICAN AMERICAN 63 ML/MIN (>=60); GFR NON AFRICAN AMERICAN 55 ML/MIN (>=60); GLUCOSE, SERUM 103 MG/DL (60-99); SODIUM, SERUM 147 MMOL/L (135-148)
[2016-08-11 06:07] LABS: PHOSPHORUS, SERUM 3.6 MG/DL (2.5-4.5)
[2016-08-11 06:43] LABS: BAND NEUTROPHILS 3 %; EOSINOPHILS 2 %; EOSINOPHILS ABSOLUTE (CALC) 0.09 10/3/uL (0.0-0.53); IMMATURE GRANS ABSOLUTE (CALC) 0.05 10/3/uL (0.0-0.11); LYMPHOCYTES 31 %; LYMPHOCYTES ABSOLUTE (CALC) 1.43 10/3/uL (0.67-4.30); METAMYELOCYTES 1 %; NEUTROPHILS ABSOLUTE (CALC) 3.04 10/3/uL (2.02-8.40); PLATELET ESTIMATE SLT DEC (ADEQUATE); RBC MORPHOLOGY NORM (NORMAL); SEGMENTED NEUTROPHIL (0) 63 %; TOTAL NUCLEATED CELLS 100
[2016-08-12 04:38] LABS: BASOPHILS 0.2 %; BASOPHILS ABSOLUTE 0.01 10/3/uL (0.0-0.16); EOSINOPHILS 2.7 %; EOSINOPHILS ABSOLUTE 0.12 10/3/uL (0.0-0.53); HEMATOCRIT 26.4 % (36.0-48.0); HEMOGLOBIN 8.9 g/dL (12.0-16.0); IMMATURE GRANULOCYTES 1.8 %; IMMATURE GRANULOCYTES ABSOLUTE 0.08 10/3/uL (0.0-0.11); LYMPHOCYTES 18.2 %; LYMPHOCYTES ABSOLUTE 0.82 10/3/uL (0.67-4.30); MEAN CORPUS HGB CONC 33.7 g/dL (32.0-36.0); MEAN CORPUSCULAR HEMOGLOB 30.9 pg (26.0-34.0); MEAN CORPUSCULAR VOLUME 91.7 fL (80-100); MONOCYTES 18.8 %; MONOCYTES ABSOLUTE 0.85 10/3/uL (0.21-1.20); NEUTROPHILS 58.3 %; NEUTROPHILS ABSOLUTE 2.63 10/3/uL (2.02-8.40); PLATELET COUNT 152 10/3/uL (150-400); RBC DISTRIBUTION WIDTH 15.7 % (12.0-16.0); RED CELL COUNT 2.88 10/6/uL (4.0-5.6); WHITE BLOOD CELLS 4.5 10/3/uL (4.5-10.5)
[2016-08-12 04:39] LABS: MANUAL DIFF NO %
[2016-08-12 04:52] LABS: BUN (BLOOD UREA NITROGEN) 6 MG/DL (6-23); CALCIUM, SERUM 7.8 MG/DL (8.5-10.4); CHLORIDE, SERUM 112 MMOL/L (96-112); CO2 (CARBON DIOXIDE) 28 MMOL/L (24-34); GFR AFRICAN AMERICAN 68 ML/MIN (>=60); GFR NON AFRICAN AMERICAN 59 ML/MIN (>=60); POTASSIUM, SERUM 3.9 MMOL/L (3.5-5.3); SODIUM, SERUM 149 MMOL/L (135-148)
[2016-08-12 04:53] LABS: GLUCOSE, SERUM 140 MG/DL (60-99)
[2016-08-13 05:32] LABS: BASOPHILS 0.5 %; BASOPHILS ABSOLUTE 0.03 10/3/uL (0.0-0.16); EOSINOPHILS 4.1 %; EOSINOPHILS ABSOLUTE 0.25 10/3/uL (0.0-0.53); HEMATOCRIT 27.6 % (36.0-48.0); HEMOGLOBIN 9.1 g/dL (12.0-16.0); IMMATURE GRANULOCYTES 3.1 %; IMMATURE GRANULOCYTES ABSOLUTE 0.19 10/3/uL (0.0-0.11); LYMPHOCYTES 18.8 %; LYMPHOCYTES ABSOLUTE 1.16 10/3/uL (0.67-4.30); MEAN CORPUSCULAR HEMOGLOB 30.5 pg (26.0-34.0); MEAN CORPUSCULAR VOLUME 92.6 fL (80-100); MEAN PLATELET VOLUME 10.1 fL (9.2-13.0); MONOCYTES 12.3 %; MONOCYTES ABSOLUTE 0.76 10/3/uL (0.21-1.20); NEUTROPHILS 61.2 %; NEUTROPHILS ABSOLUTE 3.78 10/3/uL (2.02-8.40); PLATELET COUNT 193 10/3/uL (150-400); RBC DISTRIBUTION WIDTH 16.1 % (12.0-16.0); RED CELL COUNT 2.98 10/6/uL (4.0-5.6); WHITE BLOOD CELLS 6.2 10/3/uL (4.5-10.5)
[2016-08-13 05:34] LABS: MANUAL DIFF NO %
[2016-08-13 05:49] LABS: BUN (BLOOD UREA NITROGEN) 9 MG/DL (6-23); CALCIUM, SERUM 8.3 MG/DL (8.5-10.4); CHLORIDE, SERUM 112 MMOL/L (96-112); CO2 (CARBON DIOXIDE) 28 MMOL/L (24-34); CREATININE 0.95 MG/DL (0.55-1.02); GFR AFRICAN AMERICAN 72 ML/MIN (>=60); GFR NON AFRICAN AMERICAN 62 ML/MIN (>=60); GLUCOSE, SERUM 99 MG/DL (60-99); POTASSIUM, SERUM 4.2 MMOL/L (3.5-5.3); SODIUM, SERUM 148 MMOL/L (135-148)
[2016-08-14 16:33] LABS: % IRON SAT 13 % (20-50); FERRITIN 126 NG/ML (8-252); IRON BINDING CAPACITY 253 MCG/DL (225-410); IRON, SERUM 34 MCG/DL (35-150)
== END 2016-08-17 02:30 | DRG 871 ==
LOC: ER 19:03 → CCU 23:32 → 7NO 08-10 21:03
PROVIDERS: Emergency Medicine; Internal Medicine; Internal Medicine Critical Care Medicine; Psychiatry & Neurology Neurology
PROC: 02HV33Z Insertion of Infusion Device into Superior Vena Cava, Percutaneous Approach (ICD-10-PCS; principal; 2016-08-07)
PROC: 4A02X4A Measurement of Cardiac Electrical Activity, Guidance, External Approach (ICD-10-PCS; 2016-08-07)
PROC: 009U3ZX Drainage of Spinal Canal, Percutaneous Approach, Diagnostic (ICD-10-PCS; 2016-08-08)
DX: A40.0 Sepsis due to streptococcus, group A (principal); R65.21 Severe sepsis with septic shock; J69.0 Pneumonitis due to inhalation of food and vomit; G93.41 Metabolic encephalopathy; N17.9 Acute kidney failure, unspecified; F20.2 Catatonic schizophrenia; D69.6 Thrombocytopenia, unspecified; E86.0 Dehydration; N39.0 Urinary tract infection, site not specified; G40.909 Epilepsy, unspecified, not intractable, without status epilepticus; B96.20 Unspecified Escherichia coli [E. coli] as the cause of diseases classified elsewhere; J02.0 Streptococcal pharyngitis; D53.9 Nutritional anemia, unspecified; Z59.0 Homelessness; Z23 Encounter for immunization
CPT/HCPCS: 36569; 36600; 70450; 70551; 71010; 74000; 80048; 80053; 80074; 80156; 80164; 80305; 80307; 81001; 82140; 82330; 82533; 82550; 82553; 82728; 82803; 82805; 82945; 82947; 82962; 83540; 83550; 83605; 83735; 83880; 84100; 84132; 84145; 84157; 84295; 84439; 84443; 84484; 85014; 85025; 85384; 85610; 85730; 86022; 86592; 87040; 87070; 87077; 87086; 87150; 87186; 87205; 87389; 87449; 87529; 87529-59; 87641; 87804; 87880; 89051; 90662; 93005; 93306; 94640; 95819; 96365; 96366; 96367; 96368; 96375; 96376; 99291; 99292; A9270-GY; C1751; C9113; G0008; J0456; J1953; J1956; J2543; J3370; J3411